=== PATIENT | male | born 2000 | race African-American/Black ===

== ENCOUNTER 2022-01-09 09:12 | Emergency (ER) | payer MEDICAID, OTHER, SELFPAY ==
[2022-01-09] MEDS ORDERED: hydrOXYzine 25 MG TAB ONE (09:26)
[2022-01-09] MEDS ORDERED: methylPREDNISolone Sod Succ/PF 125 MG/2 ML VIAL ONE (09:26)
[2022-01-09] MEDS ORDERED: Famotidine 20 MG TAB ONE (09:26)
== END 2022-01-09 10:07 | disposition home or self-care (01) ==
LOC: BURERS 09:12
DX: T63.461A Toxic effect of venom of wasps, accidental (unintentional), initial encounter (principal)
CPT/HCPCS: 96372; 99282; J2930